=== PATIENT | male | born 1950 | race Caucasian/White ===

== ENCOUNTER 2019-03-07 10:27 | Inpatient (IN) ==
--- NOTE | 2019-02-21 15:17 | PAT Medication Instructions ---
Medication Instructions Date of Service February 21, 2019 Home Medications flaxseed oil 1,000 mg PO QAM fluticasone propionate 1 spray INTRANASAL HS loratadine 10 mg PO QAM omeprazole 20 mg PO QAM tamsulosin [Flomax] 0.4 mg PO QAM [PreserVision AREDS] vitamins A,C,M-luks-ejigod 2 tab PO QAM STOP taking 2 weeks before surgery (or as soon as possible if surgery is within 2 weeks) flaxseed oil 1,000 mg PO QAM [PreserVision AREDS] vitamins A,C,A-gjnj-rxgdgh 2 tab PO QAM DO NOT take the morning of surgery loratadine 10 mg PO QAM Take morning of surgery With a small sip of water, OTHERWISE NOTHING TO EAT OR DRINK AFTER MIDNIGHT: omeprazole 20 mg PO QAM tamsulosin [Flomax] 0.4 mg PO QAM Take evening before surgery fluticasone propionate 1 spray INTRANASAL HS Other Notes If you have any questions please call us at [phone] or [phone] or [phone] or [phone]
--- NOTE | 2019-02-22 09:22 | Anesthesiology Consultation ---
Date of Service February 22, 2019 Assessment & Plan (1) Encounter for pre-operative examination: Chart Review Chart Review: Acceptable Risk for Surgery Teaching & Discussion Pre-Anesthesia Teaching/Discussion Notes: Instructed NPO after midnight before surgery,except medications with 15 cc of water. Medication instructions provided according to the PAT guidelines. History Surgery Operation Date: 03/07/19 09:50 Proposed Procedures p Robotic Laparoscopic Assisted Radical Retropubic Prostatectomy, Possible Open, Possible Pelvic Lymph Node Dissection, Possible Suprapubic Tube Placement - Mahamed Blake MD Height/Weight Height: 5 ft 10.5 in Weight: 92.1 kg Allergies Allergy/AdvReac Type Severity Reaction Status Date / Time No Known Allergies Allergy Verified 02/21/19 09:28 Medications Home Medications Medication Instructions Recorded Confirmed Last Taken flaxseed oil 1,000 mg PO QAM 02/21/19 02/21/19 Unknown fluticasone propionate 1 spray INTRANASAL HS 02/21/19 02/21/19 Unknown loratadine 10 mg PO QAM 02/21/19 02/21/19 Unknown omeprazole 20 mg PO QAM 02/21/19 02/21/19 Unknown tamsulosin [Flomax] 0.4 mg PO QAM 02/21/19 02/21/19 Unknown vitamins A,C,Q-skdq-psazbe 2 tab PO QAM 02/21/19 02/21/19 Unknown [PreserVision AREDS] Past Medical History Medical History Vasovagal syncope HX; NO ISSUES SINCE 2017 BPH (benign prostatic hyperplasia) Cancer PROSTATE CANCER GERD (gastroesophageal reflux disease) CONTROLLED Macular degeneration Sleep apnea CPAP Exercise / Class Metabolic Activity II 4-5 Yardwork/Stairs/Walk up hill Past Surgical History Surgical History History of colonoscopy History of esophagogastroduodenoscopy (EGD) History of herniorrhaphy History of nasal septoplasty History of prostate biopsy History of repair of rotator cuff RT History of tooth extraction Hx of vasectomy Past Anesthesia History No Hx of Anesthesia Complications (EXCEPT PONV) and No Family Hx of Anesthesia Complications History of PONV No Family Hx of PONV, History of PONV and Hx of Motion Sickness (OCCASIONAL) Social History Smoking Status: Never smoker Do You Dip or Chew Tobacco: No Hx Alcohol Use: Yes Alcohol type: wine alcohol intake frequency: holidays/special occasions only Hx Substance Use: No substance use type: does not use Review of Systems Patient denies chest pain, shortness of breath, dyspnea on exertion, cough, wheezing, palpitations. Physical Exam Vital Signs VITALS BP 159/89 P 66 TEMP 97.6 SP02 97%RA RESP 18 Patient advised to followup with PCP regarding elevated BP. PHYSICAL Full neck and c-spine range of motion. Full TMJ range of motion. TMD 4 finger breaths Mallampati Score 2 Dentition: upper partial, crowns on molars Lungs: clear throughout to auscultation Cardiac: regular rate and rhythm, no murmurs noted Spine: normal Carotid arteries: negative bruit Extremities: no edema Nunez-- advised to trim Testing Electrocardiogram Date: 02/22/19 Findings: + NSR @ (67) Chest X-Ray Date: 02/22/19 Findings: + NAD The lungs are mildly hyperexpanded. Mild degenerative changes within the upper to mid thoracic spine. Laboratory Results 02/22/19 09:31 02/22/19 09:31 Blood Type O Positive 02/22/19 09:31 Antibody Screen NEGATIVE 02/22/19 09:31 Urine Color Yellow 02/22/19 09:31 Urine Appearance Clear (Clear) 02/22/19 09:31 Urine pH 7.0 (4.5-7.5) 02/22/19 09:31 Ur Specific [place] 1.009 (1.000-1.030) 02/22/19 09:31 Urine Protein Negative (Negative) 02/22/19 09:31 Urine Glucose (UA) Negative (Negative) 02/22/19 09:31 Urine Ketones Negative (Negative) 02/22/19 09:31 Urine Nitrite Negative (Negative) 02/22/19 09:31 Ur Leukocyte Esterase Negative (Negative) 02/22/19 09:31 Surgeon aware low WBC
--- NOTE | 2019-02-22 09:52 | XRay Report ---
XR chest Pre-admission PA/Lat HISTORY: Preop. COMPARISON: None. FINDINGS: The lungs are mildly hyperexpanded. No focal lung consolidations to suggest pneumonia. No e vidence for pulmonary edema. The heart is normal in size. No pleural fusions. No pneumothorax. Mild d egenerative changes within the upper to mid thoracic spine. IMPRESSION: No acute process. Electronically signed by: Sharad Hua M.D. 02/22/2019 9:51 AM
[2019-02-22 09:58] LABS: Basophils # (auto) 0.03 K/uL (0-0.2); Basophils % (auto) 0.8 %; Eosinophils # (auto) 0.14 K/uL (0-0.5); Eosinophils % (auto) 3.5 %; Hematocrit (blood only) 43.3 % (42-52); Hemoglobin 14.8 g/dL (14.0-18.0); Lymphocytes # (auto) 1.06 K/uL (1.2-3.4); Lymphocytes % (auto) 26.5 %; Mean Corpuscular Hgb Conc 34.2 g/dL (32-36); Mean Corpuscular Volume 79.9 fL (80-100); Mean Platelet Volume 10.5 fL (7.4-10.4); Monocytes # (auto) 0.47 K/uL (0.11-0.59); Monocytes % (auto) 11.8 %; Neutrophils % (auto) 57.4 %; Platelet Count 181 K/uL (130-400); RDW Coefficient of Variation 15.5 % (11.5-14.5); RDW Standard Deviation 45.3 fL (36.4-46.3); Red Blood Count 5.42 M/uL (4.7-6.1)
[2019-02-22 10:08] LABS: Appearance Urine Clear (Clear); Bilirubin Urine Negative (Negative); Blood Urine Negative (Negative); Color Urine Yellow; Glucose Urine UA Negative (Negative); Ketones Urine Negative (Negative); Leukocyte Esterase Urine Negative (Negative); Nitrite Urine Negative (Negative); Protein Urine Negative (Negative); Specific Gravity Urine 1.009 (1.000-1.030); Urobilinogen Urine Negative (Negative)
[2019-02-22 10:13] LABS: BUN Creatinine Ratio 15.1 (10-20); Calcium 9.4 mg/dl (8.5-10.1); Creatinine Clr Calc Pharmacy 97.2 ml/min; Est GFR (African American) 104.7; Est GFR (Non-African American) 90.4; Potassium 4.2 mmol/L (3.5-5.1)
[~2019-03-07 10:27] MED LIST: CEFAZOLIN 2000MG 2,000 MG/15 ML SYR IV SCH; HEPARIN SOD 5,000 UNIT/0.5 ML VIAL SQ SCH; LR 15ML/HR IV SCH
[2019-03-07] MEDS ORDERED: ROCURONIUM BROMIDE 10 MG/ML 5 ML VIAL ONE ×4 (10:37→15:31)
[2019-03-07] MEDS ORDERED: DEXAMETHASONE SOD INJ 4 MG/ML VIAL ONE (10:37)
[2019-03-07] MEDS ORDERED: NEOSTIGMINE METHYLSULFATE 5 MG/5 ML SYR ONE (10:37)
[2019-03-07] MEDS ORDERED: ONDANSETRON INJ 2 MG/ML 2 ML VIAL ONE (10:37)
[2019-03-07] MEDS ORDERED: GLYCOPYRROLATE 0.2 MG/ML VIAL ONE (10:37)
[2019-03-07] MEDS ORDERED: LIDOCAINE HCL 2% 2 ML VIAL/AMP(20MG/ML) INFIL ONE (10:37)
[2019-03-07] MEDS ORDERED: LARYING-O-JET KIT (LTA) ONE (10:37)
[2019-03-07] MEDS ORDERED: PROPOFOL IV EMULSION 10 MG/ML 20 ML VIAL IV ONE (10:37)
[2019-03-07] MEDS ORDERED: fentaNYL citrate 100 MCG/2 ML VIAL ONE ×2 (10:38→16:13)
[2019-03-07] MEDS ORDERED: MIDAZOLAM HCL 1 MG/ML 2ML VIAL ONE (10:38)
[2019-03-07] MEDS ORDERED: PROMETHAZINE HCL 12.5 MG in SODIUM CHLORIDE 0.9% 50 ML IV PRN (11:15)
[2019-03-07] MEDS ORDERED: PHENYLEPHRINE 100MCG/ML 5ML SYR IV PRN (11:15)
[2019-03-07] MEDS ORDERED: ONDANSETRON INJ 2 MG/ML 2 ML VIAL IV PRN ×2 (11:15→19:08)
[2019-03-07] MEDS ORDERED: HYDROmorphone INJ 1 MG/ML SYRINGE IV PRN (11:15)
[2019-03-07] MEDS ORDERED: ePHEDrine sulfate 50 MG/ML AMP IV PRN (11:15)
[2019-03-07] MEDS ORDERED: fentaNYL citrate 100 MCG/2 ML VIAL IV PRN (11:15)
[2019-03-07] MEDS ORDERED: ATROPINE SULFATE 0.1 MG/ML 10ML SYR IV PRN (11:15)
--- NOTE | 2019-03-07 12:50 | History & Physical Bridge Note ---
Date of Service March 07, 2019 History & Physical Bridge Note I have examined the patient, reviewed the History & Physical and in the interval since the performance of the History & Physical I have noted the following changes of clinical significance: no changes noted
[2019-03-07] MEDS ORDERED: BUPIVACAINE 0.5 % 5 MG/1 ML MPF 30ML VIAL ONE (13:26)
[2019-03-07] MEDS ORDERED: BELLADONNA/OPIUM SUPP 60 MG SUPP PR ONE (13:47)
[2019-03-07] MEDS ORDERED: PHENYLEPHRINE 100MCG/ML 5ML SYR ONE ×3 (13:49→16:06)
[2019-03-07] MEDS ORDERED: ePHEDrine sulfate 50 MG/ML SYR ONE ×3 (13:49→14:43)
--- NOTE | 2019-03-07 16:41 | Operative Report ---
Post Operative Report Pre & Post Diagnosis Operation Date: 03/07/19 12:05 Pre-Op Diagnosis: Prostatic Cancer Post-Op Diagnosis: Prostatic Cancer Procedure Operation Date: 03/07/19 12:05 Actual Procedures p Robotic Assisted Laparoscopic Radical Retropubic Prostatectomy, Pelvic Lymph Node Dissection(Not Applicable) - Mahamed Blake MD Surgeon Renzo Blake MD Global Risk Management Director China Maher Estimated Blood Loss 100 Findings Consistent with Post-Op Diagnosis Specimens 1. Periprostatic fat 2. Right pelvic lymph nodes 3. Left pelvic lymph nodes 4. prostate and seminal vesicles Description of Procedure The patient was identified in the preoperative holding area, appropriate informed consents were reviewed and completed, and he was transported to the operating suite. Subcutaneous heparin was administered in the pre-operative holding area. Upon arrival in the operating suite, he received appropriate antibiotics and general anesthesia. He was positioned in dorsal lithotomy, a B&O suppository was inserted after digital rectal exam, and he was prepped and draped in standard fashion. A Stewart catheter was inserted in the sterile field. A Veress needle was passed per umbilicus with uniform insufflation of the abdomen to 15mmHg. He was placed in steep Trendelenburg position. A periumbilical incision was then made to acco mmodate a 12mm Visiport with 10mm 0degree laparoscope. Inspection of the abdomen was carried out, and there was no evidence of traumatic entry or injury secondary to the Veress needle. After confirming a clear anterior abdominal wall, ports were subsequently placed in standard robotic prostatectomy fashion without incident. To begin the robotic portion of the case, the left lateral aspect of the sigmoid was mobilized off of the left pelvic side wall to allow the pouch of Dominic to be appropriately visualized. I then made an incision in the pouch of Dominic, overlying the seminal vesicles. Both SVs as well as the ampullae of the vasa were entirely dissected, with the vasa transected 3cm from the prostate. The medial umbilical ligaments were then controlled with bipolar electrocautery just inferior to the umbilicus. Following cauterization, they were divided utilizing monopolar cautery. A peritoneal incision was carried from this location to the medial aspect of the internal inguinal rings bilaterally with care to avoid opening through the ring. This incision was concluded when the vas deferens was reached. Dissection of the bladder and prostate off of the posterior aspect of the pubic arch was completed allowing full visualization of the prostate. The fat overlying the prostate was removed en bloc and passed off the table as a specimen labeled "periprostatic fat". The endopelvic fascia was cleared during this portion of the procedure, and subsequently opened - first on the right and then the left. The incision through the endopelvic fascia began near the prostate-bladder junction and was carried to the apex with extreme care to preserve all lateral levator musculature as well as the periurethral musculature and sphincter complex. The puboprostatic ligaments were thinned slightly bilaterally before placing a 0-Vicryl figure of 8 stitch around the DVC. The lymph node dissection was then conducted. External iliac vessels were identified on the pelvic side wall. The packet of fat and lymphatic tissue that resides just under the iliac vein was elevated and off of the vein with a split and roll technique. The packet was dissected laterally to the circumflex vein and distally to the obturator nerve which was preserved. The proximal aspect of the packet was carried towards the bifurcation of the iliac vessels. A combination of monopolar and bipolar cautery were used to assist with control. Clips were placed at the proximal and distal aspects of the packet prior to transection. After completing the dissection on both sides, the packets were collected and passed off of the table as specimens labeled "pelvic lymph nodes". My attention then returned to the prostate, with identification of the bladder neck aided by gentle traction on the Stewart catheter and lateral to medial pressure at the presumed level of the bladder neck with the robotic instruments. An anterior cystotomy was made, the Stewart balloon deflated and the catheter guided through the incision to allow anterior retraction. I attempted to preserve maximal bladder neck musculature as I circumferentially dissected around the bladder neck. After incision through the posterior aspect of the mucosa, the dissection was carried through detrusor muscle until the bilateral ampullae of the vasa were identified. The previously dissected vasa and SVs were brought through the incision and used to elevated the prostate anteriorly. A posterior plane behind the prostate was then developed - splitting Denonvilliers's fascia. This dissection was carried as far as possible towards the apex as well as far as possible laterally. An incision in the lateral prostatic fascia was then made bilaterally to facilitate control of the vascular pedicles. The pedicles were each controlled with a series of Weck clips. The neurovascular bundles were identified with an aggressive nerve sparing on the right and a more cautious approach on the left. The apical attachments of the prostate were remaining at that stage. The DVC was divided with bipolar electrocautery. Myla-prostatic tissue incised with sharp dissection and monopolar cautery. Maximal urethral length was preserved before dividing the urethra sharply. The prostate was entirely freed at that point, and collected in an EndoCatch bag before being moved out of the field of vision. Hemostasis was confirmed and anastomosis of the bladder and urethra was completed utilizing a double armed V- Lock stitch. A new Stewart catheter was inserted and the anastomosis tested with irrigation. There was no evidence of leak. FloSeal coagulant was placed around the anastomosis. The robot was undocked, the specimen extracted through expansion of the myla- umbilical camera port. The fascia was closed with a series of 0-PDS figure of 8 stitches. The right blood and plasma laboratory assistant port was closed in two layers - with a figure of 8 0-Vicryl to reapproximate the fascia followed by 4-0 Monocryl to close the skin. Monocryl was used to close all other skin incisions. All wounds were dressed with Dermabond. The case was concluded and the patient taken to the PACU in stable condition. China Maher assisted throughout the surgery from incision to closure. I attest to the content of the Intraoperative Record and any orders documented therein. Any exceptions are noted below.
[2019-03-07 17:20] LABS: Hematocrit (blood only) 41.6 % (42-52); Mean Corpuscular Volume 80.5 fL (80-100); Mean Platelet Volume 10.2 fL (7.4-10.4); Platelet Count 150 K/uL (130-400); RDW Coefficient of Variation 15.2 % (11.5-14.5); RDW Standard Deviation 44.7 fL (36.4-46.3); Red Blood Count 5.17 M/uL (4.7-6.1); White Blood Count 9.08 K/uL (4.8-10.8)
[2019-03-07 17:21] LABS: Mean Corpuscular Hgb Conc 33.7 g/dL (32-36)
[2019-03-07 17:40] LABS: BUN Creatinine Ratio 11.9 (10-20); Calcium 8.5 mg/dl (8.5-10.1); Creatinine Clr Calc Pharmacy 74.8 ml/min; Est GFR (African American) 79.8; Est GFR (Non-African American) 68.8; Potassium 3.4 mmol/L (3.5-5.1)
--- NOTE | 2019-03-07 17:51 | Anesthesiology Progress Note ---
Date of Service March 07, 2019 Anesthesia Post Procedure Vital Signs Vital Signs: Temp Pulse Pulse Resp BP Pulse Ox 03/07/19 17:44 36.5 C 96 H 18 101/58 L 98 03/07/19 17:35 36.5 C 91 H 18 109/68 99 03/07/19 17:25 91 H 18 111/61 99 03/07/19 17:15 95 H 23 91/51 L 99 03/07/19 17:05 72 11 L 89/54 L 97 03/07/19 16:55 81 14 104/59 L 98 03/07/19 16:46 36.1 C L 67 23 81/48 L 97 03/07/19 11:02 36.3 C L 85 16 154/93 H 100 Transfer of Care Handoff Completed per policy Notes Mental Status: alert / awake / arousable Patient Amnestic to Procedure: Yes Nausea / Vomiting: adequately controlled Pain: adequately controlled Airway Patency, RR, SpO2: stable & adequate BP & HR: stable & adequate Hydration State: stable & adequate Anesthetic Complications: no major complications apparent Notes: Pt awake, doing well, no complaints. VSS.
[2019-03-07] MEDS ORDERED: ACETAMINOPHEN W/CODEINE #3 1 TAB PO PRN (19:07)
[2019-03-07] MEDS ORDERED: ACETAMINOPHEN 325 MG TAB PO PRN (19:07)
[2019-03-07] MEDS ORDERED: MoRPHine SULFATE 2 MG/ML CARP IV PRN (19:07)
[2019-03-07] MEDS ORDERED: DiphenhydrAMINE HCL 50 MG/ML VIAL IV PRN (19:08)
[2019-03-07] MEDS: LACTATED RINGER'S 1,000 ML IV SCH (19:18)
[2019-03-07] MEDS: HEPARIN SOD 5,000 UNIT/0.5 ML VIAL SQ SCH (21:47)
[2019-03-08] MEDS: LACTATED RINGER'S 1,000 ML IV SCH ×2 (00:32→12:02)
--- NOTE | 2019-03-08 07:50 | Urology Progress Note ---
Date of Service March 08, 2019 Assessment & Plan (1) Prostate CA: pod #1 s/p RALP w/ LND - doing very well - ambulate - advance diet - likely d/c home later today Subjective feels very well minimal pain ambulating urine clear Physical Exam Physical Exam: incisions appropriate - no bruising or erythema - minimal ooze from the left lateral port urine clear Results & Data Vital Signs (Past 12 Hours) Vital Signs Temp Pulse Resp BP Pulse Ox 03/08/19 03:31 36.6 C 93 H 16 110/64 97 03/07/19 23:17 36.2 C L 103 H 16 103/66 95 03/07/19 21:32 36.5 C 92 H 20 103/64 97 03/07/19 20:25 36.4 C L 92 H 18 101/64 96
--- NOTE | 2019-03-08 08:15 | Anesthesiology Progress Note ---
Date of Service March 08, 2019 Anesthesia Post Procedure Vital Signs Vital Signs: Temp Pulse Pulse Resp BP Pulse Ox 03/08/19 08:00 36.9 C 91 H 11 L 118/72 96 03/08/19 03:31 36.6 C 93 H 16 110/64 97 03/07/19 23:17 36.2 C L 103 H 16 103/66 95 03/07/19 21:32 36.5 C 92 H 20 103/64 97 03/07/19 20:25 36.4 C L 92 H 18 101/64 96 03/07/19 19:28 36.3 C L 90 18 106/67 96 03/07/19 18:55 36.3 C L 89 18 103/62 96 03/07/19 18:25 36.3 C L 91 H 16 111/62 95 03/07/19 17:55 36.5 C 81 18 107/64 97 03/07/19 17:45 36.5 C 96 H 18 101/58 L 98 03/07/19 17:35 36.5 C 91 H 18 109/68 99 03/07/19 17:25 91 H 18 111/61 99 03/07/19 17:15 95 H 23 91/51 L 99 03/07/19 17:05 72 11 L 89/54 L 97 03/07/19 16:55 81 14 104/59 L 98 03/07/19 16:46 36.1 C L 67 23 81/48 L 97 03/07/19 11:02 36.3 C L 85 16 154/93 H 100 Pain Intensity Abdomen: Pain Intensity: 2 Notes Mental Status: alert / awake / arousable and participated in evaluation Patient Amnestic to Procedure: Yes Nausea / Vomiting: adequately controlled Pain: adequately controlled Airway Patency, RR, SpO2: stable & adequate BP & HR: stable & adequate Hydration State: stable & adequate Anesthetic Complications: no major complications apparent
[2019-03-08 08:17] LABS: BUN Creatinine Ratio 11.5 (10-20); Calcium 8.5 mg/dl (8.5-10.1); Creatinine Clr Calc Pharmacy 87.4 ml/min; Est GFR (African American) 96.3; Est GFR (Non-African American) 83.1; Potassium 3.9 mmol/L (3.5-5.1)
[2019-03-08 08:25] LABS: Hematocrit (blood only) 37.2 % (42-52); Mean Corpuscular Hgb Conc 34.9 g/dL (32-36); Mean Corpuscular Volume 78.8 fL (80-100); Mean Platelet Volume 10.3 fL (7.4-10.4); Platelet Count 166 K/uL (130-400); RDW Coefficient of Variation 15.4 % (11.5-14.5); Red Blood Count 4.72 M/uL (4.7-6.1); White Blood Count 7.19 K/uL (4.8-10.8)
[2019-03-08] MEDS ORDERED: PANTOprazole 40 MG TAB PO SCH (09:00)
[2019-03-08] MEDS: HEPARIN SOD 5,000 UNIT/0.5 ML VIAL SQ SCH (09:11)
[2019-03-08 11:57] VITALS: BP 124/72; PULSE 84; TEMP 98.1; O2SAT 99
--- NOTE | 2019-03-09 11:49 | Discharge Summary ---
Date of Service March 09, 2019 Admission HPI Per Admitting Provider Presenting for robotic prostatectomy secondary to recently diagnosed prostate cancer Principal Diagnosis Prostate cancer Discharge Data Allergies Allergy/AdvReac Type Severity Reaction Status Date / Time No Known Allergies Allergy Verified 03/07/19 10:58 Procedures Performed Operation Date: 03/07/19 12:05 Actual Procedures p Robotic Assisted Laparoscopic Radical Retropubic Prostatectomy, Pelvic Lymph Node Dissection(Not Applicable) - Mahamed Blake MD Hospital Course (1) Prostate CA: Patient admitted for a robotic prostatectomy - details of the procedure as dictated previously in my operative report - in summary, he tolerated the procedure very well - he was in stable condition overnight with appropriate urine output and stable labs - he was subsequently discharged home with a freed catheter - he was in stable condition at the time of discharge Total Time Total Time Spent Total Time Spent (In Minutes): 30 Total Time Includes: Examination of the Patient, Discharge Planning and Medication Reconciliation Discharge Plan Discharge Items Patient Disposition: Home - Self-Care Reason For Visit: Prostatic Cancer Discharge Diagnosis: Prostate cancer Discharge Goals: Improve disease control and Therapeutic intervention Activity: Per 'Additional Instructions' section Lifting: No more than 10 pounds Bathing Comment: OK to shower tomorrow, do not scrub/pick surgical glue, no soaking in tub Sexual Activity: Wait until after follow-up appointment Exercise/Sports: None Exercise Comment: Walking and stairs in your home are OK Driving/Machine Use Comment: Please do not drive while taking narcotic pain medication. Non-emergency contact: Urologist Call non-emergency contact if: you have any medication questions, your pain is concerning for you, your temperature is above 101, your wound has increased redness, your wound has increased drainage and your wound pain has increased Follow-up/Referrals: Lonnie Beltran MD [Primary Care Provider] - Diet: Regular Addtl Provider Instructions: Please keep all follow up appointments at the urology office as scheduled. Call office at [phone] if you have any questions or concerns. Pain: take Tylenol for mild pain. Take pain medication (Oxycodone) every 6 hours as needed for moderate/severe pain. Bowels: take stool softener (Colace) twice daily for 2 weeks, then as needed for constipation. Antibiotic: begin taking in the morning on 03/13/19. This is the day before your catheter removal. Finish completely as prescribed. Freed: clean twice daily with soap and water. Call Urology office right away if not draining or if catheter gets pulled or displaced for any reason. Pathology results from your surgery will be reviewed at your follow up visit with Dr. Blake. Thanks for allowing us to participate in your care! Prescriptions: New oxycodone 5 mg tablet 5 mg PO Q6H PRN (Reason: pain) Qty: 14 RF: 0 docusate sodium [Colace] 100 mg capsule 100 mg PO BID PRN (Reason: constipation) Qty: 60 RF: 0 ciprofloxacin HCl [Cipro] 500 mg tablet 500 mg PO BID Qty: 6 RF: 0 Continued fluticasone propionate 50 mcg/actuation [place],Suspension 1 spray INTRANASAL HS RF: 0 loratadine 10 mg Tablet 10 mg PO QAM RF: 0 omeprazole 20 mg Tablet,Delayed Release (Dr/Ec) 20 mg PO QAM RF: 0 Discontinued flaxseed oil 1,000 mg Capsule 1,000 mg PO QAM RF: 0 tamsulosin [Flomax] 0.4 mg Capsule 0.4 mg PO QAM RF: 0 PreserVision AREDS [id number] Tablet 2 tab PO QAM RF: 0 Stand-Alone Forms: [facility] [employer], Opioid Pain Management [facility]/Other Patient Handouts: Catheter Bag Urinary Empty Clean, Catheter Indwelling Urinary Dc, Leg Bag Care Dc, ED Catheter Care Freed Discharge Orders: Discharge Order (Routine); Ordered 03/08/19 Ordered By: China Maher Admission Data Admit Date/Time: 03/07/19 18:16 Attending Provider: Mahamed Blake Admit Provider: Mahamed Blake Primary Care Provider: Lonnie Beltran Service: Surgical Services Other Interventions: Discharge Summary Assessment (RN) Last Done: 03/08/19 13:03 Pending Studies at Discharge: Yes Studies:: Pathology DC Date/Time DO NOT enter until pt leaves facility: 03/08/19 14:06
== END 2019-03-08 14:06 | disposition home or self-care (01) | DRG 708 ==
LOC: ASU 10:27 → 3N 18:16